=== PATIENT | male | born 2000 | race Caucasian/White ===

== ENCOUNTER 2020-09-18 20:48 | Emergency (ER) | payer OTHER ==
[2020-09-18] MEDS ORDERED: IBUPROFEN800 MG PO (23:40)
== END 2020-09-18 23:55 | disposition home or self-care (01) ==
LOC: FER 20:48
DX: S93.401A Sprain of unspecified ligament of right ankle, initial encounter (principal); X50.1XXA Overexertion from prolonged static or awkward postures, initial encounter; Y93.67 Activity, basketball; Y92.39 Other specified sports and athletic area as the place of occurrence of the external cause
CPT/HCPCS: 73610; J1885